=== PATIENT | female | born 1970 | race African-American/Black ===

== ENCOUNTER 2016-08-28 22:43 | Observation (INO) | payer BC, MEDICAID, OTHER ==
[~2016-08-28] VITALS: Ht 175.3 cm; Wt 48.3 kg
[~2016-08-28 22:43] MED LIST: PRED20 PO; ZYRT10TA12 PO
[2016-08-28 22:46] VITALS: BP 136/85; PULSE 90; RESP 16; TEMP 97.6; O2SAT 99
[2016-08-28] MEDS ORDERED: diphenhydrAMINE HCL 50 MG/ML VIAL IVP ONE (23:15)
[2016-08-28] MEDS ORDERED: methylPREDNISolone SOD SUCC 125 MG/2 ML VIAL IVP ONE (23:15)
[2016-08-28] MEDS ORDERED: EPINEPHrine HCL (1:1000) 1 MG/ML VIAL IM ONE (23:15)
--- NOTE | 2016-08-28 23:25 | PD ---
HPI Chief Complaint: Allergic/Adverse Reaction Time Seen by Provider: 22:52 Travel History International Travel<30 days: No Contact w/Intl Traveler<30days: No Traveled to known affect area: No History of Present Illness HPI 45yo F with no PMH presents to the ED with c/o upper lip swelling that has worsened over time today. States she has been taking her sister's blood pressure medication for 1 week because she checked her blood pressure at [facility] and her bottom number was 90. Currently denies any fever, chest pain, sob, n/v, abdominal pain, tongue or throat swelling. PFSH Past Medical History Diabetes: Yes (gestational) Patient Takes Glucophage: No Diminished Hearing: No Hypertension: Yes ?: Not LMP: 2 days ago : 2 Para: 2 Tubal Ligation: Yes Past Surgical History Section: Yes (X2) Other Surgery: Yes (L shldr cyst removal) Social History Alcohol Use: No Tobacco Use: No (never) Substance Use: No Allergies-Medications (Allergen,Severity, Reaction): Coded Allergies: Enalapril (Verified Allergy, Severe, angioedema, 08/29/16) Doxycycline (Verified Allergy, Mild, HIVES, 05/31/09) Reported Meds & Prescriptions Reported Meds & Active Scripts Active No Active Prescriptions or Reported Medications Review of Systems Except as stated in HPI: all other systems reviewed are Neg Physical Exam Narrative GENERAL: 45yo F not in distress. SKIN: Focused skin assessment warm/dry. HEAD: Atraumatic. Normocephalic. EYES: Pupils equal and round. No scleral icterus. No injection or drainage. ENT:Throat: No uvula edema. No tongue swelling. Marked upper lip swelling. NECK: Trachea midline. No JVD. CARDIOVASCULAR: Regular rate and rhythm. No murmur appreciated. RESPIRATORY: No accessory muscle use. Clear to auscultation. Breath sounds equal bilaterally. GASTROINTESTINAL: Abdomen soft, non-tender, nondistended. No rebound tenderness or guarding. MUSCULOSKELETAL: No obvious deformities. No clubbing. No cyanosis. No edema. NEUROLOGICAL: Awake and alert. No obvious cranial nerve deficits. Motor grossly within normal limits. Normal speech. PSYCHIATRIC: Appropriate mood and affect; insight and judgment normal. Data Data Last Documented VS Vital Signs Date Time Temp Pulse Resp B/P Pulse Ox O2 Delivery O2 Flow Rate FiO2 08/29/16 01:00 84 16 129/87 98 Room Air 08/28/16 22:46 97.6 Orders Complete Blood Count With Diff (08/28/16 23:05) Basic Metabolic Panel (Bmp) (08/28/16 23:05) Diphenhydramine Inj (Benadryl Inj) (08/28/16 23:15) Methylprednisolone So Succ Inj (Solumedr (08/28/16 23:15) Epinephrine (1:1000) Inj (Adrenalin (1:1 (08/28/16 23:15) Admit Order (Ed Use Only) (08/29/16 01:19) Labs Laboratory Tests Test 08/28/16 23:15 White Blood Count 8.3 TH/MM3 Red Blood Count 5.05 MIL/MM3 Hemoglobin 12.6 GM/DL Hematocrit 38.4 % Mean Corpuscular Volume 76.0 FL Mean Corpuscular Hemoglobin 24.9 PG Mean Corpuscular Hemoglobin 32.8 % Concent Red Cell Distribution Width 14.1 % Platelet Count 215 TH/MM3 Mean Platelet Volume 9.6 FL Neutrophils (%) (Auto) 47.7 % Lymphocytes (%) (Auto) 39.3 % Monocytes (%) (Auto) 8.6 % Eosinophils (%) (Auto) 3.9 % Basophils (%) (Auto) 0.5 % Neutrophils # (Auto) 4.0 TH/MM3 Lymphocytes # (Auto) 3.3 TH/MM3 Monocytes # (Auto) 0.7 TH/MM3 Eosinophils # (Auto) 0.3 TH/MM3 Basophils # (Auto) 0.0 TH/MM3 CBC Comment AUTO DIFF Differential Comment AUTO DIFF CONFIRMED Platelet Estimate NORMAL Platelet Morphology Comment ENLARGED Sodium Level 140 MEQ/L Potassium Level 4.1 MEQ/L Chloride Level 106 MEQ/L Carbon Dioxide Level 27.1 MEQ/L Anion Gap 7 MEQ/L Blood Urea Nitrogen 12 MG/DL Creatinine 0.89 MG/DL Estimat Glomerular Filtration 84 ML/MIN Rate Random Glucose 92 MG/DL Calcium Level 8.9 MG/DL MDM Medical Decision Making Medical Screen Exam Complete: Yes Emergency Medical Condition: Yes Interpretation(s) Laboratory Tests Test 08/28/16 23:15 White Blood Count 8.3 TH/MM3 (4.0-11.0) Red Blood Count 5.05 MIL/MM3 (4.00-5.30) Hemoglobin 12.6 GM/DL (11.6-15.3) Hematocrit 38.4 % (35.0-46.0) Mean Corpuscular Volume 76.0 FL (80.0-100.0) Mean Corpuscular Hemoglobin 24.9 PG (27.0-34.0) Mean Corpuscular Hemoglobin 32.8 % Concent (32.0-36.0) Red Cell Distribution Width 14.1 % (11.6-17.2) Platelet Count 215 TH/MM3 (150-450) Mean Platelet Volume 9.6 FL (7.0-11.0) Neutrophils (%) (Auto) 47.7 % (16.0-70.0) Lymphocytes (%) (Auto) 39.3 % (9.0-44.0) Monocytes (%) (Auto) 8.6 % (0.0-8.0) Eosinophils (%) (Auto) 3.9 % (0.0-4.0) Basophils (%) (Auto) 0.5 % (0.0-2.0) Neutrophils # (Auto) 4.0 TH/MM3 (1.8-7.7) Lymphocytes # (Auto) 3.3 TH/MM3 (1.0-4.8) Monocytes # (Auto) 0.7 TH/MM3 (0-0.9) Eosinophils # (Auto) 0.3 TH/MM3 (0-0.4) Basophils # (Auto) 0.0 TH/MM3 (0-0.2) CBC Comment AUTO DIFF Differential Comment AUTO DIFF CONFIRMED Platelet Estimate NORMAL (NORMAL) Platelet Morphology Comment ENLARGED (NORMAL) Sodium Level 140 MEQ/L (136-145) Potassium Level 4.1 MEQ/L (3.5-5.1) Chloride Level 106 MEQ/L (98-107) Carbon Dioxide Level 27.1 MEQ/L (21.0-32.0) Anion Gap 7 MEQ/L (5-15) Blood Urea Nitrogen 12 MG/DL (7-18) Creatinine 0.89 MG/DL (0.50-1.00) Estimat Glomerular Filtration 84 ML/MIN (>89) Rate Random Glucose 92 MG/DL (74-106) Calcium Level 8.9 MG/DL (8.5-10.1) Differential Diagnosis Angioedema vs. allergic reaction Narrative Course 45yo F with worsening upper lip swelling today. Pt found out her sister's medication was enalapril. Pt given diphenhydramine, methylprednisolone and epinephrine and reevaluated at bedside. Upper lip swelling has not really improve. 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 However, since swelling has not improved and thre is still concern about airway obstruction with its progression, will admit to ICU for airway monitor. Denies any chest pain or sob. Labs reviewed, no leukocytosis. BMP unremarkable. Discussed with hospitalist's PA and accepted to Dr. Dubose's service. Critical Care Narrative Aggregate critical care time was 35 minutes. Time to perform other separately billable procedures was not included in the critical care time. My time did not include minutes spent treating any other patients simultaneously or on activities that did not directly contribute to the patient's treatment. The services I provided to this patient were to treat and/or prevent clinically significant deterioration that could result in: respiratory arrest or . I provided critical care services requiring my management, as noted below: Chart data review, documentation time, medication orders and management, vital sign assessments/reviewing monitor data, ordering and reviewing lab tests, ordering and interpreting/reviewing x- rays and diagnostic studies, care of the patient and discussion of the patient with the admitting physicians. Diagnosis Primary Impression: Angioedema Qualified Code: T78.3XXA - Angioedema, initial encounter Admitting Information Admitting Physician Requests: Observation Scripts No Active Prescriptions or Reported Meds Malika Moreno DO Aug 28, 2016 23:25
[2016-08-29] VITALS (8 sets, daily range): BP systolic 108–165; BP diastolic 62–87; PULSE 69–96; RESP 16–20; TEMP 97.7–98.7; O2SAT 95–98
[2016-08-29 00:27] LABS: BASOPHIL % 0.5 % (0.0-2.0); EOSINOPHIL # 0.3 TH/MM3 (0-0.4); EOSINOPHIL % 3.9 % (0.0-4.0); HEMATOCRIT 38.4 % (35.0-46.0); LYMPH % 39.3 % (9.0-44.0); LYMPHOCYTE # 3.3 TH/MM3 (1.0-4.8); MEAN CORPUSCULAR HEMOGLOBIN 24.9 PG (27.0-34.0); MEAN CORPUSCULAR HGB CONC 32.8 % (32.0-36.0); MONO % 8.6 % (0.0-8.0); NEUT % 47.7 % (16.0-70.0); PLATELET COUNT 215 TH/MM3 (150-450); RED BLOOD COUNT 5.05 MIL/MM3 (4.00-5.30); RED CELL DISTRIBUTION WIDTH 14.1 % (11.6-17.2); WHITE BLOOD COUNT 8.3 TH/MM3 (4.0-11.0)
[2016-08-29 00:29] LABS: HEMO FLAGS AUTO DIFF
[2016-08-29 00:51] LABS: BICARBONATE 27.1 MEQ/L (21.0-32.0); POTASSIUM 4.1 MEQ/L (3.5-5.1)
[2016-08-29 01:16] LABS: PLATELET ESTIMATE SMEAR NORMAL (NORMAL); PLATELET MORPHOLOGY ENLARGED (NORMAL)
[2016-08-29 01:17] LABS: SCAN/DIFF AUTO DIFF CONFIRMED
[2016-08-29] MEDS ORDERED: SODIUM CHLORIDE 0.9% FLUSH 10 ML FLUSH IV FLUSH PRN (01:30)
[2016-08-29] MEDS ORDERED: ONDANSETRON HCL 4 MG/2 ML VIAL IVP PRN (01:30)
[2016-08-29] MEDS ORDERED: ACETAMINOPHEN 325 MG TAB PO PRN (01:30)
[2016-08-29] MEDS ORDERED: NALOXONE HCL 0.4 MG/ML AMP IV PRN (01:30)
[2016-08-29] MEDS ORDERED: diphenhydrAMINE HCL 50 MG/ML VIAL IM SCH (01:30)
[2016-08-29] MEDS ORDERED: PILL SPLITTER OTHER PRN (01:45)
--- NOTE | 2016-08-29 02:09 | HHI.HP ---
[facility] Service [facility] Primary Care Physician No Primary Care Physician Admission Diagnosis Angioedema Diagnoses: Chief Complaint: Swelling of upper lip times one day Travel History International Travel<30 Days: No Contact w/Intl Traveler <30 Da: No Traveled to Known Affected Are: No History of Present Illness This is a pleasant 45-year-old [place]i female with a past medical history which includes gestational diabetes and self diagnosed hypertension. Patient reports 3-4 days ago that her systolic blood pressure was in the 90s when she checked at [facility]. Patient then started taking her sister's blood pressure medication, enalapril. Patient has an upcoming appointment to establish with PCP on . Patient noticed 08/28/2016 in the morning while she was at work that her upper lip was slightly swollen. Patient reports that by the time she got home from work her upper lip swelling was increasing therefore she proceeded to the emergency department for further evaluation and treatment. Patient denies shortness of breath, difficulty swallowing, changes in voice, drooling, fevers chills nausea vomiting diarrhea constipation or chest pain. Patient was given Solu-Medrol 125 mg along with Benadryl and epinephrine by ER physician patient reports that the edema seems to be about the same has not gotten worse since she is returned to the emergency department. Review of Systems Except as stated in HPI: all other systems reviewed are Neg Past Family Social History Past Medical History Gestational diabetes and self diagnosed hypertension Past Surgical History Tubal ligation, section 2, cyst removed from left shoulder Reported Medications Had been taking her sister's enalapril for 3-4 days, no other home medications Allergies: Coded Allergies: Doxycycline (Verified Allergy, Mild, HIVES, 05/31/09) Active Ordered Medications Current Medications Medications (Trade) Dose Ordered Sig/Pawan Route Start Time Stop Time Status Last Admin (NS Flush) 2 ml UNSCH PRN IV FLUSH 08/29/16 01:30 (NS Flush) 2 ml BID IV FLUSH 08/29/16 09:00 (Tylenol) 650 mg Q4H PRN PO 08/29/16 01:30 (Zofran Inj) 4 mg Q6H PRN IVP 08/29/16 01:30 (Narcan Inj) 0.4 mg UNSCH PRN IV 08/29/16 01:30 (SoluMEDROL INJ) 60 mg Q8HR IV PUSH 08/29/16 06:00 (Benadryl Inj) 25 mg Q6H IM 08/29/16 01:30 (Pepcid) 10 mg BID PO 08/29/16 09:00 Miscellaneous 1 ea 1 ea UNSCH PRN OTHER 08/29/16 01:45 (NS 1000 ml Inj) 1,000 ml @ 42 mls/hr [id number] IV 08/29/16 01:45 Family History Mother and father both have hypertension and diabetes 3 sisters have hypertension Social History EtOH use, "once in a great while" Denies tobacco use now or in the past Denies illicit drug use Physical Exam Vital Signs Vital Signs Date Time Temp Pulse Resp B/P Pulse Ox O2 Delivery O2 Flow Rate FiO2 08/29/16 01:39 98 08/28/16 22:46 97.6 90 16 136/85 99 Physical Exam GENERAL: This is a well-nourished, well-developed patient, with stable edema of upper lip SKIN: No rashes, ecchymoses or lesions. Cool and dry. HEAD: Atraumatic. Normocephalic. No temporal or scalp tenderness. EYES: Extraocular motions intact. No scleral icterus. No injection or drainage. ENT: Nose without bleeding, purulent drainage or septal hematoma. Throat without erythema, tonsillar hypertrophy or exudate. Uvula midline. Airway patent. NECK: Trachea midline. No JVD or lymphadenopathy. Supple, nontender, no meningeal signs. CARDIOVASCULAR: Regular rate and rhythm without murmurs, gallops, or rubs. RESPIRATORY: Clear to auscultation. Breath sounds equal bilaterally. No wheezes , rales, or rhonchi. GASTROINTESTINAL: Abdomen soft, non-tender, nondistended. MUSCULOSKELETAL: Extremities without clubbing, cyanosis, or edema. No joint tenderness, effusion, or edema noted. No calf tenderness. Negative Homans sign bilaterally. NEUROLOGICAL: Awake and alert. No focal deficits appreciated. Motor and sensory grossly within normal limits. Five out of 5 muscle strength in all muscle groups. Normal speech. Laboratory Laboratory Tests Test 08/28/16 23:15 White Blood Count 8.3 Red Blood Count 5.05 Hemoglobin 12.6 Hematocrit 38.4 Mean Corpuscular Volume 76.0 Mean Corpuscular Hemoglobin 24.9 Mean Corpuscular Hemoglobin 32.8 Concent Red Cell Distribution Width 14.1 Platelet Count 215 Mean Platelet Volume 9.6 Neutrophils (%) (Auto) 47.7 Lymphocytes (%) (Auto) 39.3 Monocytes (%) (Auto) 8.6 Eosinophils (%) (Auto) 3.9 Basophils (%) (Auto) 0.5 Neutrophils # (Auto) 4.0 Lymphocytes # (Auto) 3.3 Monocytes # (Auto) 0.7 Eosinophils # (Auto) 0.3 Basophils # (Auto) 0.0 CBC Comment AUTO DIFF Differential Comment AUTO DIFF CONFIRMED Platelet Estimate NORMAL Platelet Morphology Comment ENLARGED Sodium Level 140 Potassium Level 4.1 Chloride Level 106 Carbon Dioxide Level 27.1 Anion Gap 7 Blood Urea Nitrogen 12 Creatinine 0.89 Estimat Glomerular Filtration 84 Rate Random Glucose 92 Calcium Level 8.9 Result Diagram: 08/28/16 2315 08/28/162314 Assessment and Plan Problem List: (1) Angioedema ICD Code: T78.3XXA Status: Acute Assessment and Plan This is a pleasant 45-year-old [place]i female with a past medical history which includes gestational diabetes and self diagnosed hypertension. Patient reports 3-4 days ago that her systolic blood pressure was in the 90s when she checked at [facility]. Patient then started taking her sister's blood pressure medication, enalapril. Angioedema- with stable airway Patient given diphenhydramine, epinephrine and Solu-Medrol emergency department Will continue diphenhydramine 25 mg IV every 6 hours, Solu-Medrol 60 mg every 8 hours and Pepcid twice a day Cardiac telemetry Close monitoring Patient educated on the importance of not taking others medications and following up with PCP DVT prophylaxis with SCDs Discussed with ER provider nursing inpatient Problem Qualifiers (1) Angioedema: Qualified Code: T78.3XXA - Angioedema, initial encounter Evelyne Jeffrey Aug 29, 2016 02:09
[2016-08-29] MEDS: diphenhydrAMINE HCL 50 MG/ML VIAL IV PUSH SCH ×4 (02:28→20:46)
[2016-08-29] MEDS: SODIUM CHLOR 0.9% 1000 ML INJ 1,000 ML IV SCH (02:28)
[2016-08-29] MEDS: methylPREDNISolone SOD SUCC 40 MG/1 ML VIAL IV PUSH SCH ×3 (05:09→20:47)
[2016-08-29] MEDS: SODIUM CHLORIDE 0.9% FLUSH 10 ML FLUSH IV FLUSH SCH ×2 (09:00→20:45)
[2016-08-29] MEDS: FAMOTIDINE 20 MG TAB PO SCH ×2 (09:12→20:46)
--- NOTE | 2016-08-29 10:34 | HHI.PR ---
Subjective Remarks Follow up for angioedema. The patient reports continued significant upper lip swelling, only minimally improved compared to her arrival. Continues to deny any tongue swelling, difficulty breathing, shortness of breath, odynophagia/ dysphagia. She has no other medical complaints at this time. She wants to eat. Objective Vitals Vital Signs Date Time Temp Pulse Resp B/P Pulse Ox O2 Delivery O2 Flow Rate FiO2 08/29/16 08:46 97.9 69 18 165/87 96 08/29/16 04:00 97.7 82 20 108/62 95 08/29/16 01:39 98 08/29/16 01:00 84 16 129/87 98 Room Air 08/28/16 22:46 97.6 90 16 136/85 99 Result Diagram: 08/28/16231408/28/162314 Objective Remarks GENERAL: Well-nourished, well-developed middle aged female patient in [facility]. SKIN: Warm and dry. No rash. Diffuse upper lip edema. HEENT: Normocephalic. Atraumatic.Pupils equal and round. Mucous membranes pink and moist. NECK: Supple. Trachea midline. CARDIOVASCULAR: Regular rate and rhythm. S1, S2 noted. No murmur appreciated. RESPIRATORY: No accessory muscle use. Clear to auscultation. Breath sounds equal bilaterally. GASTROINTESTINAL: Abdomen soft, non-tender, nondistended. Normoactive bowel sounds x4. MUSCULOSKELETAL: No obvious deformities. Extremities without clubbing, cyanosis , or edema. NEUROLOGICAL: Awake and alert. No obvious cranial nerve deficits. Motor grossly within normal limits. Normal speech. PSYCHIATRIC: Appropriate mood and affect; insight and judgment normal. Medications and IVs Current Medications Medications (Trade) Dose Ordered Sig/Pawan Route Start Time Stop Time Status Last Admin (NS Flush) 2 ml UNSCH PRN IV FLUSH 08/29/16 01:30 (NS Flush) 2 ml BID IV FLUSH 08/29/16 09:00 (Tylenol) 650 mg Q4H PRN PO 08/29/16 01:30 (Zofran Inj) 4 mg Q6H PRN IVP 08/29/16 01:30 (Narcan Inj) 0.4 mg UNSCH PRN IV 08/29/16 01:30 (SoluMEDROL INJ) 60 mg Q8HR IV PUSH 08/29/16 06:00 08/29/16 05:09 (Pepcid) 10 mg BID PO 08/29/16 09:00 08/29/16 09:12 Miscellaneous 1 ea 1 ea UNSCH PRN OTHER 08/29/16 01:45 (NS 1000 ml Inj) 1,000 ml @ 42 mls/hr [id number] IV 08/29/16 01:45 08/29/16 02:28 (Benadryl Inj) 25 mg Q6H IV PUSH 08/29/16 03:00 08/29/16 09:12 A/P Problem List: (1) Angioedema ICD Code: T78.3XXA Status: Acute Assessment and Plan This is a pleasant 45-year-old Mongolian female with a past medical history which includes gestational diabetes and self diagnosed hypertension. Patient reports 3-4 days ago that her diastolic blood pressure was 96 when she checked at [facility], therefore she started taking her sister's blood pressure medication, enalapril. Angioedema: with stable airway. S/p diphenhydramine, epinephrine and Solu- Medrol in the ED Continue Benadryl 25 mg IV q6h, Solu-Medrol 60 mg q8h and Pepcid bid Close monitoring Liquid diet Patient educated on the importance of not taking any MIRA inhibitors or non- prescribed medications and following up with PCP as scheduled on 09/02 DVT prophylaxis with SCDs Problem Qualifiers (1) Angioedema: Qualified Code: T78.3XXA - Angioedema, initial encounter Shyla Prieto PA-C Aug 29, 2016 10:34 am
[2016-08-30 00:36] VITALS: BP 129/65; PULSE 79; RESP 20; TEMP 98.9; O2SAT 95
[2016-08-30] MEDS: diphenhydrAMINE HCL 50 MG/ML VIAL IV PUSH SCH ×3 (02:57→14:33)
[2016-08-30 04:43] VITALS: BP 130/70; PULSE 84; RESP 20; TEMP 99.1; O2SAT 96
[2016-08-30] MEDS: methylPREDNISolone SOD SUCC 40 MG/1 ML VIAL IV PUSH SCH ×2 (05:34→14:34)
[2016-08-30 05:55] LABS: AUTOMATED NEUTROPHIL # 16.6 TH/MM3 (1.8-7.7); HEMATOCRIT 38.2 % (35.0-46.0); LYMPH % 9.8 % (9.0-44.0); LYMPHOCYTE # 1.9 TH/MM3 (1.0-4.8); MEAN CELL VOLUME 76.7 FL (80.0-100.0); MEAN CORPUSCULAR HEMOGLOBIN 24.3 PG (27.0-34.0); MEAN CORPUSCULAR HGB CONC 31.7 % (32.0-36.0); MONO % 4.4 % (0.0-8.0); NEUT % 85.8 % (16.0-70.0); PLATELET COUNT 251 TH/MM3 (150-450); RED BLOOD COUNT 4.98 MIL/MM3 (4.00-5.30); RED CELL DISTRIBUTION WIDTH 14.6 % (11.6-17.2); WHITE BLOOD COUNT 19.4 TH/MM3 (4.0-11.0)
[2016-08-30 06:05] LABS: HEMO FLAGS AUTO DIFF
[2016-08-30 06:17] LABS: BICARBONATE 25.6 MEQ/L (21.0-32.0); POTASSIUM 4.1 MEQ/L (3.5-5.1)
[2016-08-30 07:04] LABS: SCAN/DIFF AUTO DIFF CONFIRMED
[2016-08-30] MEDS: SODIUM CHLORIDE 0.9% FLUSH 10 ML FLUSH IV FLUSH SCH (09:00)
--- NOTE | 2016-08-30 09:15 | HHI.PR ---
Subjective Remarks Follow up for angioedema. The patient reports continued improvement of her upper lip edema, almost back to normal. Continues to deny any tongue swelling, difficulty breathing, shortness of breath, or dysphagia. She wants to advance diet from liquids to regular food. She has no other medical complaints at this time. Objective Vitals Vital Signs Date Time Temp Pulse Resp B/P Pulse Ox O2 Delivery O2 Flow Rate FiO2 08/30/16 04:43 99.1 84 20 130/70 96 08/30/16 00:36 98.9 79 20 129/65 95 08/29/16 19:08 98.7 96 20 136/73 97 08/29/16 16:13 98.2 84 18 144/83 95 08/29/16 11:20 98.2 80 18 135/75 96 08/29/16 10:28 78 Result Diagram: 08/30/16 0459 08/30/16 0459 Objective Remarks GENERAL: Well-nourished, well-developed middle aged female patient in [facility]. SKIN: Warm and dry. No rash. Diffuse upper lip edema, improving. HEENT: Normocephalic. Atraumatic.Pupils equal and round. Mucous membranes pink and moist. NECK: Supple. Trachea midline. CARDIOVASCULAR: Regular rate and rhythm. S1, S2 noted. No murmur appreciated. RESPIRATORY: No accessory muscle use. Clear to auscultation. Breath sounds equal bilaterally. GASTROINTESTINAL: Abdomen soft, non-tender, nondistended. Normoactive bowel sounds x4. MUSCULOSKELETAL: No obvious deformities. Extremities without clubbing, cyanosis , or edema. NEUROLOGICAL: Awake and alert. No obvious cranial nerve deficits. Motor grossly within normal limits. Normal speech. PSYCHIATRIC: Appropriate mood and affect; insight and judgment normal. Medications and IVs Current Medications Medications (Trade) Dose Ordered Sig/Pawan Route Start Time Stop Time Status Last Admin (NS Flush) 2 ml UNSCH PRN IV FLUSH 08/29/16 01:30 (NS Flush) 2 ml BID IV FLUSH 08/29/16 09:00 (Tylenol) 650 mg Q4H PRN PO 08/29/16 01:30 (Zofran Inj) 4 mg Q6H PRN IVP 08/29/16 01:30 (Narcan Inj) 0.4 mg UNSCH PRN IV 08/29/16 01:30 (SoluMEDROL INJ) 60 mg Q8HR IV PUSH 08/29/16 06:00 08/30/16 05:34 (Pepcid) 10 mg BID PO 08/29/16 09:00 08/29/16 20:46 Miscellaneous 1 ea 1 ea UNSCH PRN OTHER 08/29/16 01:45 (NS 1000 ml Inj) 1,000 ml @ 42 mls/hr [id number] IV 08/29/16 01:45 08/29/16 02:28 (Benadryl Inj) 25 mg Q6H IV PUSH 08/29/16 03:00 08/29/16 20:46 A/P Problem List: (1) Angioedema ICD Code: T78.3XXA Status: Acute Assessment and Plan This is a pleasant 45-year-old Iranian female with a past medical history which includes gestational diabetes and self diagnosed hypertension. Patient reports 3-4 days ago that her diastolic blood pressure was 96 when she checked at [facility], therefore she started taking her sister's blood pressure medication, enalapril. Angioedema: with stable airway. S/p diphenhydramine, epinephrine and Solu- Medrol in the ED Continue Benadryl 25 mg IV q6h, Solu-Medrol 60 mg q8h and Pepcid bid Close monitoring Liquid diet, advanced to Heart Healthy diet today Patient educated on the importance of not taking any MIRA inhibitors or non- prescribed medications and following up with PCP as scheduled on 09/02 DVT prophylaxis with SCDs Discussed with Dr. Ring. Discharge Planning Possible discharge later today if the patient's lip swelling continues to improve. 1430hrs: Patient continues to improve, tolerating regular diet, will discharge home. Patient has f/up appt with new PCP on 08/03. Discharge patient to home Condition on discharge: Improved Regular Diet as tolerated Ad Patricia activity Rx written: Prednisone dose pack, Zantac 150mg bid x7days, Benadryl 25mg q6h x7days Follow-up with primary care physician on 08/03 as scheduled Problem Qualifiers (1) Angioedema: Qualified Code: T78.3XXA - Angioedema, initial encounter Shyla Prieto PA-C August 30, 2016 9:15 am
[2016-08-30 09:24] VITALS: BP 121/81; PULSE 80; RESP 20; TEMP 98; O2SAT 95
[2016-08-30] MEDS: FAMOTIDINE 20 MG TAB PO SCH (11:22)
[2016-08-30] MEDS: SODIUM CHLOR 0.9% 1000 ML INJ 1,000 ML IV SCH (11:23)
[2016-08-30 13:31] VITALS: BP 123/79; PULSE 69; RESP 18; TEMP 97.9; O2SAT 98
[2016-08-30] MEDS ORDERED: ZANT150T2 PO (14:35)
[2016-08-30] MEDS ORDERED: PRED10PA PO (14:35)
[2016-08-30] MEDS ORDERED: BENA25TA3 PO (14:35)
--- NOTE | 2016-08-30 14:36 | HHI.DCPOC ---
Discharge Care Plan Diagnosis: (1) Angioedema (2) Allergy to MIRA inhibitors (3) Allergic reaction caused by a drug Goals to Promote Your Health * To prevent worsening of your condition and complications * To maintain your health at the optimal level Directions to Meet Your Goals Take your medications as prescribed Follow your dietary instruction Follow activity as directed Keep your appointments as scheduled Take your immunizations and boosters as scheduled If your symptoms worsen call your PCP, if no PCP go to Urgent Care Center or Emergency Room Smoking is Dangerous to Your Health. Avoid second hand smoke Call the 24-hour hour crisis hotline for domestic abuse at Shyla Prieto PA-C August 30, 2016 2:36 pm
== END 2016-08-30 17:12 | disposition home or self-care (01) ==
LOC: NEPE 22:43 → NEDA 08-29 01:20 → NEPHCDU 08-29 03:37
PROVIDERS: ADMIT Internal Medicine; ATTEND Internal Medicine
DX: T78.3XXA Angioneurotic edema, initial encounter (principal); I10 Essential (primary) hypertension
CPT/HCPCS: 80048; 85025; 96372; 96374; 96375; 99291; G0378; J0171; J1200; J2920; J2930; J7030